=== PATIENT | male | born 1985 | race Caucasian/White ===

== ENCOUNTER 2020-10-01 14:08 | Emergency (ER) | payer MEDICAID ==
[~2020-10-01] VITALS: Ht 175.3 cm; Wt 85.0 kg
[2020-10-01 14:11] VITALS: BP 129/81
[2020-10-01] MEDS ORDERED: LIDOCAINE-MPF 1%, 5ML ONE (14:19)
[2020-10-01] MEDS ORDERED: BUPIVACAINE 0.25% ONE (14:19)
--- NOTE | 2020-10-01 14:29 | NUR ---
MED REQUESTED FROM PHARMACY.
[2020-10-01] MEDS ORDERED: BUPIVACAINE/PF-EPI 0.25% 1:200K SQ ONE (14:30)
[2020-10-01] MEDS ORDERED: LIDOCAINE-MPF 1%, 5ML INFIL ONE (14:30)
== END 2020-10-01 15:03 | disposition home or self-care (01) ==
LOC: ED 14:41
DX: K08.89 Other specified disorders of teeth and supporting structures (principal); F17.200 Nicotine dependence, unspecified, uncomplicated
CPT/HCPCS: 99283

== ENCOUNTER 2020-10-09 18:26 | Emergency (ER) | payer MEDICAID ==
[~2020-10-09] VITALS: Ht 175.3 cm; Wt 82.4 kg
[2020-10-09 19:00] VITALS: BP 129/97
== END 2020-10-09 20:44 | disposition home or self-care (01) ==
LOC: ED 18:46
DX: R05 Cough (principal); Z20.828 Contact with and (suspected) exposure to other viral communicable diseases; F17.210 Nicotine dependence, cigarettes, uncomplicated
CPT/HCPCS: 71045; 87635; 99284; 99406